=== PATIENT | male | born 1985 ===

== ENCOUNTER 2017-03-27 21:35 | Emergency (ER) | payer SELFPAY ==
[2017-03-27 21:42] VITALS: BP 131/78; PULSE 62; RESP 18; TEMP 97; O2SAT 100
--- NOTE | 2017-03-27 22:38 | ED PDOC ---
HPI: Dental Pain/Injury Time Seen by Provider: 03/27/17 22:10 Chief Complaint (Nursing): Abdominal Pain Chief Complaint (Provider): oral cavity lesions History Per: Patient History/Exam Limitations: no limitations Additional Complaint(s): 31yo M in ER for eval of sore throat and abd pain x 1 week without fever chills nausea or vomiting. admits to pain with eating no change in voice no swelling to face no rash. no sick contacts. denies new sexual contact other than .denies penile d/c or back pain denies penile lesions. Past Medical History Reviewed: Historical Data, Nursing Documentation, Vital Signs Vital Signs: Last Vital Signs Temp 97.0 F L 03/27/17 21:40 Pulse 62 03/27/17 21:40 Resp 18 03/27/17 21:40 BP 131/78 03/27/17 21:40 Pulse Ox 100 03/27/17 21:40 - Medical History PMH: No Chronic Diseases - Family History Family History: States: No Known Family Hx - Home Medications Home Medications: Ambulatory Orders Medication Instructions Recorded Nystatin [Nystatin Oral Susp] 5 ml PO BID #60 ml 03/27/17 Dolutegravir Sodium [Tivicay] 50 mg PO DAILY #60 tab 03/28/17 Emtricitabine/Tenofovir (Tdf) 1 each PO DAILY #60 tablet 03/28/17 [Truvada 200 mg-300 mg Tablet] - Allergies Allergies/Adverse Reactions: Allergies Allergy/AdvReac Type Severity Reaction Status Date / Time No Known Allergies Allergy Verified 03/27/17 21:40 Review of Systems ROS Statement: Except As Marked, All Systems Reviewed And Found Negative Constitutional: Negative for: Fever, Chills ENT: Positive for: Mouth Pain Physical Exam - Reviewed Nursing Documentation Reviewed: Yes Vital Signs Reviewed: Yes - Physical Exam Appears: Positive for: Well, Non-toxic, No Acute Distress Skin: Positive for: Normal Color, Warm, DRY Eye Exam: Positive for: Normal appearance, EOMI, PERRL ENT: Positive for: Normal ENT Inspection (phayrnyx: white patches noted in post. ahsrered to [place] resembles thrush. ), Other Neck: Positive for: Normal, Painless ROM Cardiovascular/Chest: Positive for: Regular Rate, Rhythm Respiratory: Positive for: CNT, Normal Breath Sounds Gastrointestinal/Abdominal: Positive for: Normal Exam, Bowel Sounds, Soft Back: Positive for: Normal Inspection Extremity: Positive for: Normal ROM Neurologic/Psych: Positive for: Alert, Oriented - ECG O2 Sat by Pulse Oximetry: 100 Medical Decision Making Medical Decision Making: Orders PT positive HIV dx: HIV and Thrush illusionist used to provide pt with information #[id number] Pt understands recent dx and will be started on antivirals with referral to MD Leon for continued care. crisis provide pt with resources and counseling outpt. Vital Signs - 24 hr 03/27/17 03/28/17 21:40 00:08 Temperature 97.0 F L Pulse Rate 62 Respiratory 18 Rate Blood Pressure 131/78 O2 Sat by Pulse 100 100 Oximetry 03/27/17 22:48 HIV-1 Ab Rapid Screen Reactive H Disposition - Clinical Impression Clinical Impression: Thrush, HIV disease - Patient ED Disposition Is Patient to be Admitted: No Counseled Patient/Family Regarding: Studies Performed, Diagnosis, Need For Followup, Rx Given - Disposition Referrals: Malvin Quintero MD [Medical Doctor] - [facility] [Outside] [facility] [Outside] [facility] [Outside] Disposition: Routine/Home Disposition Time: 22:46 Condition: STABLE Additional Instructions: it is important that you follow up with MD Leon for further assistance. es importante que kala un seguimiento con el doctor Leon. el nmero se encuentra arriba. por favor tome bella medicamento todos los vo. por favor use un condn con samson relacin sexual. por favor busque consejera de elbert mental. no comparta agujas con otros. Prescriptions: Dolutegravir Sodium [Tivicay] 50 mg PO DAILY #60 tab Emtricitabine/Tenofovir (Tdf) [Truvada 200 mg-300 mg Tablet] 1 each PO DAILY # 60 tablet Nystatin [Nystatin Oral Susp] 5 ml PO BID #60 ml Instructions: Oral Candidiasis (ED), HIV Transmission (ED), HIV Infection (ED) , AIDS (DC) Forms: [facility] ([place]) Print Language: TELUGU
== END 2017-03-28 00:15 | disposition home or self-care (01) ==
LOC: H.ER 21:35
DX: B37.9 Candidiasis, unspecified (principal); Z21 Asymptomatic human immunodeficiency virus [HIV] infection status